=== PATIENT | female | born 1935 | race Caucasian/White ===

== ENCOUNTER 2016-10-17 10:14 | Outpatient (CLI) | payer OTHER ==
[2016-07-23 11:30] VITALS: BP 117/50
[2016-10-17 11:09] LABS: eGFR (African) 29; eGFR (Non-African) 24
== END 2016-10-17 10:15 ==
LOC: LAB 10:14
PROVIDERS: ATTEND Family Medicine
DX: N18.2 Chronic kidney disease, stage 2 (mild) (principal); I11.9 Hypertensive heart disease without heart failure; E03.9 Hypothyroidism, unspecified; E78.00 Pure hypercholesterolemia, unspecified
CPT/HCPCS: 80048; 80061; 84443

== ENCOUNTER 2016-11-25 14:58 | Outpatient (CLI) | payer OTHER ==
[2016-07-23 11:30] VITALS: BP 117/50
[2016-11-25 15:21] LABS: BASOPHILS % 0.2 (0.0-1.5); EOSINOPHILS % 0.6 % (0.0-6.8); MEAN CORPUSCULAR HEMOGLOBIN 31.7 pg (28.0-34.0); MEAN CORPUSCULAR VOLUME 93.1 fl (80.0-100.0); MONOCYTES % 5.2 % (0.0-11.0); NEUTROPHILS # 6.9 # k/uL (1.4-7.7)
[2016-11-25 16:34] LABS: eGFR (African) 35; eGFR (Non-African) 29
--- NOTE | 2016-11-26 06:01 | Diagnostic Imaging Report ---
DEBORAH ROCK~ [facility] [address] [facility] [address] [place] [address]. [id number] ~ ~ ~ ~ Report Submission Date: Nov 25, 2016 4:15:31 PM CDT Patient ~ Study Name: DEACON NJ ~ Date: Nov 25, 2016 3:34:39 PM CDT ~ Modality Type: CR Gender: F ~ Description: ABDOMEN : 31 ~ Institution: [facility] Physician: DEBORAH ROCK ~ ~ ~ ~ Abdomen - one-view Clinical history: ~Abdominal pain. ~Nausea and vomiting for 1 week. Findings: ~Examination of the abdomen in single AP view demonstrates postoperative changes with surgical clips in the right upper quadrant from prior cholecystectomy. ~Degenerative changes are present in the lumbar spine with scoliosis convex to the right. ~Increased stool is present in the colon. ~ There is no evidence of obstruction. ~Visualized lung bases are clear. ~The femoral heads are normally seated in the acetabula. Impression: 1. ~Postoperative changes. 2. ~Increased stool in the colon. 3. ~Lumbar spondylosis and dextroscoliosis. ~ Electronically signed on Nov 25, 2016 4:15:31 PM CDT by: Dayo VICTOR
== END 2016-11-25 15:00 ==
LOC: LAB 14:58
PROVIDERS: ATTEND Physician Assistant
DX: R10.84 Generalized abdominal pain (principal)
CPT/HCPCS: 36415; 74000; 80053; 85025

== ENCOUNTER 2016-11-28 09:02 | Outpatient (CLI) | payer OTHER ==
[2016-07-23 11:30] VITALS: BP 117/50
[2016-11-28 09:31] LABS: BASOPHILS % 0.5 (0.0-1.5); EOSINOPHILS % 2.3 % (0.0-6.8); MEAN CORPUSCULAR HEMOGLOBIN 31.8 pg (28.0-34.0); MEAN CORPUSCULAR VOLUME 94.4 fl (80.0-100.0); MONOCYTES % 3.8 % (0.0-11.0); NEUTROPHILS # 8.5 # k/uL (1.4-7.7)
[2016-11-28 09:55] LABS: eGFR (African) 19; eGFR (Non-African) 16
== END 2016-11-28 09:03 ==
LOC: LAB 09:02
PROVIDERS: ATTEND Family Medicine
DX: R10.30 Lower abdominal pain, unspecified (principal)
CPT/HCPCS: 36415; 80053; 85025

== ENCOUNTER 2016-11-30 10:26 | Outpatient (CLI) | payer OTHER ==
[2016-07-23 11:30] VITALS: BP 117/50
[2016-11-30 11:14] LABS: eGFR (African) 26; eGFR (Non-African) 22
== END 2016-11-30 10:27 ==
LOC: LAB 10:26
PROVIDERS: ATTEND Family Medicine
DX: R10.30 Lower abdominal pain, unspecified (principal)
CPT/HCPCS: 36415; 80048

== ENCOUNTER 2016-12-13 11:32 | Outpatient (CLI) | payer OTHER ==
[2016-07-23 11:30] VITALS: BP 117/50
[2016-12-13 12:30] LABS: eGFR (African) 27; eGFR (Non-African) 23
== END 2016-12-13 11:33 ==
LOC: LAB 11:32
PROVIDERS: ATTEND Family Medicine
DX: N18.2 Chronic kidney disease, stage 2 (mild) (principal)
CPT/HCPCS: 36415; 80048

== ENCOUNTER 2017-01-16 08:26 | Outpatient (CLI) | payer OTHER ==
[2016-07-23 11:30] VITALS: BP 117/50
[2017-01-16 08:52] LABS: BASOPHILS % 0.6 (0.0-1.5); EOSINOPHILS % 2.9 % (0.0-6.8); MEAN CORPUSCULAR HEMOGLOBIN 31.1 pg (28.0-34.0); MEAN CORPUSCULAR VOLUME 95.2 fl (80.0-100.0); MONOCYTES % 3.3 % (0.0-11.0); NEUTROPHILS # 5.4 # k/uL (1.4-7.7)
[2017-01-16 09:13] LABS: eGFR (African) 31; eGFR (Non-African) 25
== END 2017-01-16 08:27 ==
LOC: LAB 08:26
PROVIDERS: ATTEND Clinical Nurse Specialist Medical-Surgical
DX: I26.99 Other pulmonary embolism without acute cor pulmonale (principal); N39.0 Urinary tract infection, site not specified
CPT/HCPCS: 36415; 80048; 85025; 85610

== ENCOUNTER 2017-01-26 11:52 | Outpatient (CLI) | payer OTHER ==
[2016-07-23 11:30] VITALS: BP 117/50
== END 2017-01-26 12:00 ==
LOC: LAB 11:52
PROVIDERS: ATTEND Family Medicine
DX: Z51.81 Encounter for therapeutic drug level monitoring (principal); Z79.01 Long term (current) use of anticoagulants
CPT/HCPCS: 36415; 85610

== ENCOUNTER 2017-01-27 10:32 | Outpatient (CLI) | payer OTHER ==
[2016-07-23 11:30] VITALS: BP 117/50
== END 2017-01-27 10:40 ==
LOC: LABRHC 10:32
PROVIDERS: ATTEND Physician Assistant
DX: R35.0 Frequency of micturition (principal)
CPT/HCPCS: 87086

== ENCOUNTER 2017-02-08 09:14 | Outpatient (CLI) | payer OTHER ==
[2016-07-23 11:30] VITALS: BP 117/50
== END 2017-02-08 09:15 ==
LOC: LAB 09:14
PROVIDERS: ATTEND Physician Assistant
DX: Z79.01 Long term (current) use of anticoagulants (principal); R35.0 Frequency of micturition
CPT/HCPCS: 36415; 85610; 87086

== ENCOUNTER 2017-02-23 09:17 | Outpatient (CLI) | payer OTHER ==
[2016-07-23 11:30] VITALS: BP 117/50
== END 2017-02-23 09:18 ==
LOC: LAB 09:17
PROVIDERS: ATTEND Family Medicine
DX: I82.403 Acute embolism and thrombosis of unspecified deep veins of lower extremity, bilateral (principal)
CPT/HCPCS: 36415; 85610

== ENCOUNTER 2017-03-08 10:56 | Outpatient (CLI) | payer OTHER ==
[2016-07-23 11:30] VITALS: BP 117/50
[2017-03-08 11:47] LABS: eGFR (African) 31; eGFR (Non-African) 25
== END 2017-03-08 10:57 ==
LOC: LAB 10:56
PROVIDERS: ATTEND Internal Medicine Cardiovascular Disease
DX: N18.9 Chronic kidney disease, unspecified (principal); I10 Essential (primary) hypertension
CPT/HCPCS: 36415; 80048; 85610

== ENCOUNTER 2017-03-29 09:53 | Outpatient (CLI) | payer OTHER ==
[2016-07-23 11:30] VITALS: BP 117/50
== END 2017-03-29 09:54 ==
LOC: LAB 09:53
PROVIDERS: ATTEND Family Medicine
DX: I82.403 Acute embolism and thrombosis of unspecified deep veins of lower extremity, bilateral (principal)
CPT/HCPCS: 36415; 85610

== ENCOUNTER 2017-05-02 08:59 | Outpatient (CLI) | payer OTHER ==
[2016-07-23 11:30] VITALS: BP 117/50
== END 2017-05-02 09:00 ==
LOC: LAB 08:59
PROVIDERS: ATTEND Family Medicine
DX: I82.403 Acute embolism and thrombosis of unspecified deep veins of lower extremity, bilateral (principal)
CPT/HCPCS: 36415; 85610

== ENCOUNTER 2017-05-31 10:55 | Outpatient (CLI) | payer OTHER ==
[2016-07-23 11:30] VITALS: BP 117/50
== END 2017-05-31 11:00 ==
LOC: LAB 10:55
PROVIDERS: ATTEND Family Medicine
DX: I82.403 Acute embolism and thrombosis of unspecified deep veins of lower extremity, bilateral (principal)
CPT/HCPCS: 36415; 85610

== ENCOUNTER 2017-06-09 11:44 | Outpatient (CLI) | payer OTHER ==
[2016-07-23 11:30] VITALS: BP 117/50
[2017-06-09 12:04] LABS: BASOPHILS % 0.4 (0.0-1.5); EOSINOPHILS % 2.7 % (0.0-6.8); MEAN CORPUSCULAR HEMOGLOBIN 30.2 pg (28.0-34.0); MEAN CORPUSCULAR VOLUME 89.8 fl (80.0-100.0); MONOCYTES % 4.7 % (0.0-11.0); NEUTROPHILS # 5.7 # k/uL (1.4-7.7)
== END 2017-06-09 11:45 ==
LOC: LAB 11:44
PROVIDERS: ATTEND Internal Medicine Nephrology
DX: N18.4 Chronic kidney disease, stage 4 (severe) (principal); R31.9 Hematuria, unspecified; I10 Essential (primary) hypertension; Z68.28 Body mass index [BMI] 28.0-28.9, adult
CPT/HCPCS: 36415; 80069; 85025

== ENCOUNTER 2017-06-14 08:37 | Outpatient (CLI) | payer OTHER ==
[2016-07-23 11:30] VITALS: BP 117/50
== END 2017-06-14 08:40 ==
LOC: LAB 08:37
PROVIDERS: ATTEND Nurse Practitioner Family
DX: I82.403 Acute embolism and thrombosis of unspecified deep veins of lower extremity, bilateral (principal)
CPT/HCPCS: 36415; 85610

== ENCOUNTER 2017-07-03 10:55 | Outpatient (CLI) | payer OTHER ==
[2016-07-23 11:30] VITALS: BP 117/50
== END 2017-07-03 10:56 ==
LOC: LAB 10:55
PROVIDERS: ATTEND Family Medicine
DX: I82.403 Acute embolism and thrombosis of unspecified deep veins of lower extremity, bilateral (principal)
CPT/HCPCS: 36415; 85610

== ENCOUNTER 2017-07-10 08:42 | Outpatient (CLI) | payer OTHER ==
[2016-07-23 11:30] VITALS: BP 117/50
--- NOTE | 2017-07-10 11:43 | Diagnostic Imaging Report ---
FIFI BROWN [facility] [address] [facility] [address] 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 Comparison exam: None provided Findings: Sonographic evaluation of the lower extremity venous system from the groin to the popliteal fossa inclusive. Left lower extremity demonstrates normal compressibility. No luminal filling defect. Normal waveforms and response to augmentation. No popliteal region fluid collection. Right lower extremity veins were difficult to compress from the proximal femoral vein to the distal femoral vein. Remaining venous structures without gross abnormality. Normal waveforms. Adjacent to the right common femoral vein is a noncompressible low density structure. Impression: No evidence for left deep venous thrombosis. Veins in the right leg narrowed and difficult to compress - may represent residual scarring/mural thickening. Density adjacent to the right common femoral vein. Correlation with previous examination recommended. Electronically signed on Jul 10, 2017 10:07:35 AM DECORATING INSTRUCTOR by: Kojo VICTOR
== END 2017-07-10 08:44 ==
LOC: RAD 08:42
PROVIDERS: ATTEND Family Medicine
DX: I82.403 Acute embolism and thrombosis of unspecified deep veins of lower extremity, bilateral (principal)
CPT/HCPCS: 93970

== ENCOUNTER 2017-08-30 09:14 | Outpatient (CLI) | payer OTHER ==
[2016-07-23 11:30] VITALS: BP 117/50
== END 2017-08-30 09:16 ==
LOC: LAB 09:14
PROVIDERS: ATTEND Family Medicine
DX: I82.403 Acute embolism and thrombosis of unspecified deep veins of lower extremity, bilateral (principal)
CPT/HCPCS: 36415; 85610

== ENCOUNTER 2017-09-18 13:38 | Outpatient (CLI) | payer OTHER ==
[2016-07-23 11:30] VITALS: BP 117/50
== END 2017-09-18 13:40 ==
LOC: LAB 13:38
PROVIDERS: ATTEND Family Medicine
DX: I82.403 Acute embolism and thrombosis of unspecified deep veins of lower extremity, bilateral (principal)
CPT/HCPCS: 36415; 85610

== ENCOUNTER 2017-09-25 09:32 | Outpatient (CLI) | payer OTHER ==
[2016-07-23 11:30] VITALS: BP 117/50
== END 2017-09-25 09:33 ==
LOC: LAB 09:32
PROVIDERS: ATTEND Family Medicine
DX: I82.403 Acute embolism and thrombosis of unspecified deep veins of lower extremity, bilateral (principal)
CPT/HCPCS: 36415; 85610

== ENCOUNTER 2017-10-23 09:47 | Outpatient (CLI) | payer OTHER ==
[2016-07-23 11:30] VITALS: BP 117/50
== END 2017-10-23 09:50 ==
LOC: LAB 09:47
PROVIDERS: ATTEND Family Medicine
DX: I82.403 Acute embolism and thrombosis of unspecified deep veins of lower extremity, bilateral (principal)
CPT/HCPCS: 36415; 85610

== ENCOUNTER 2017-11-28 09:17 | Outpatient (CLI) | payer OTHER ==
[2016-07-23 11:30] VITALS: BP 117/50
== END 2017-11-28 09:20 ==
LOC: LAB 09:17
PROVIDERS: ATTEND Family Medicine
DX: I82.403 Acute embolism and thrombosis of unspecified deep veins of lower extremity, bilateral (principal)
CPT/HCPCS: 36415; 85610

== ENCOUNTER 2017-12-14 09:06 | Outpatient (CLI) | payer OTHER ==
[2016-07-23 11:30] VITALS: BP 117/50
== END 2017-12-14 09:07 ==
LOC: LAB 09:06
PROVIDERS: ATTEND Family Medicine
DX: I82.403 Acute embolism and thrombosis of unspecified deep veins of lower extremity, bilateral (principal)
CPT/HCPCS: 36415; 85610

== ENCOUNTER 2018-01-18 08:15 | Outpatient (CLI) | payer OTHER ==
[2016-07-23 11:30] VITALS: BP 117/50
== END 2018-01-18 08:30 ==
LOC: LAB 08:15
PROVIDERS: ATTEND Family Medicine
DX: I82.403 Acute embolism and thrombosis of unspecified deep veins of lower extremity, bilateral (principal)
CPT/HCPCS: 36415; 85610

== ENCOUNTER 2018-02-13 08:53 | Outpatient (CLI) | payer OTHER ==
[2016-07-23 11:30] VITALS: BP 117/50
[2018-02-13 09:25] LABS: BASOPHILS % 0.6 (0.0-1.5); EOSINOPHILS % 5.4 % (0.0-6.8); MEAN CORPUSCULAR HEMOGLOBIN 29.7 pg (28.0-34.0); MEAN CORPUSCULAR VOLUME 93.4 fl (80.0-100.0); MONOCYTES % 8.4 % (0.0-11.0); NEUTROPHILS # 1.9 # k/uL (1.4-7.7)
== END 2018-02-13 08:56 ==
LOC: LAB 08:53
PROVIDERS: ATTEND Internal Medicine Nephrology
DX: N18.4 Chronic kidney disease, stage 4 (severe) (principal); I10 Essential (primary) hypertension; R31.9 Hematuria, unspecified; R60.9 Edema, unspecified; Z68.25 Body mass index [BMI] 25.0-25.9, adult
CPT/HCPCS: 36415; 80069; 85025

== ENCOUNTER 2018-02-26 08:45 | Outpatient (CLI) | payer OTHER ==
[2016-07-23 11:30] VITALS: BP 117/50
[2018-02-26 17:21] LABS: SERUM IRON 106 ug/dL (37-145)
== END 2018-02-26 08:46 ==
LOC: LAB 08:45
PROVIDERS: ATTEND Family Medicine
DX: I82.403 Acute embolism and thrombosis of unspecified deep veins of lower extremity, bilateral (principal); D63.1 Anemia in chronic kidney disease; N18.4 Chronic kidney disease, stage 4 (severe); R31.9 Hematuria, unspecified; I10 Essential (primary) hypertension; Z68.24 Body mass index [BMI] 24.0-24.9, adult
CPT/HCPCS: 36415; 82728; 83540; 83550; 85610

== ENCOUNTER 2018-03-30 11:24 | Outpatient (CLI) | payer OTHER ==
[2016-07-23 11:30] VITALS: BP 117/50
== END 2018-03-30 11:52 ==
LOC: LAB 11:24
PROVIDERS: ATTEND Family Medicine
DX: I82.403 Acute embolism and thrombosis of unspecified deep veins of lower extremity, bilateral (principal)
CPT/HCPCS: 36415; 85610

== ENCOUNTER 2018-04-02 08:19 | Outpatient (CLI) | payer OTHER ==
[2016-07-23 11:30] VITALS: BP 117/50
== END 2018-04-02 08:20 ==
LOC: LAB 08:19
PROVIDERS: ATTEND Family Medicine
DX: I82.403 Acute embolism and thrombosis of unspecified deep veins of lower extremity, bilateral (principal)
CPT/HCPCS: 36415; 85610

== ENCOUNTER 2018-05-07 09:47 | Outpatient (CLI) | payer OTHER ==
[2016-07-23 11:30] VITALS: BP 117/50
== END 2018-05-07 09:50 ==
LOC: LAB 09:47
PROVIDERS: ATTEND Family Medicine
DX: I82.403 Acute embolism and thrombosis of unspecified deep veins of lower extremity, bilateral (principal)
CPT/HCPCS: 36415; 85610

== ENCOUNTER 2018-06-12 15:06 | Outpatient (CLI) | payer OTHER ==
[2016-07-23 11:30] VITALS: BP 117/50
[2018-06-12 15:24] LABS: BASOPHILS % 0.2 (0.0-1.5); EOSINOPHILS % 2.7 % (0.0-6.8); MEAN CORPUSCULAR HEMOGLOBIN 30.5 pg (28.0-34.0); NEUTROPHILS # 3.6 # k/uL (1.4-7.7)
[2018-06-12 22:02] LABS: IRON SERUM 67 ug/dL (37-145); SERUM IRON 67 ug/dL (37-145)
== END 2018-06-12 15:08 ==
LOC: LAB 15:06
PROVIDERS: ATTEND Family Medicine
DX: I82.403 Acute embolism and thrombosis of unspecified deep veins of lower extremity, bilateral (principal); D63.1 Anemia in chronic kidney disease; N18.4 Chronic kidney disease, stage 4 (severe); R31.9 Hematuria, unspecified; I10 Essential (primary) hypertension; Z68.24 Body mass index [BMI] 24.0-24.9, adult
CPT/HCPCS: 36415; 80069; 82728; 83540; 83550; 85025; 85610

== ENCOUNTER 2018-08-08 08:32 | Outpatient (CLI) | payer OTHER ==
[2016-07-23 11:30] VITALS: BP 117/50
== END 2018-08-08 08:33 ==
LOC: LAB 08:32
PROVIDERS: ATTEND Family Medicine
DX: I82.403 Acute embolism and thrombosis of unspecified deep veins of lower extremity, bilateral (principal)
CPT/HCPCS: 36415; 85610

== ENCOUNTER 2018-09-11 08:21 | Outpatient (CLI) | payer OTHER ==
[2016-07-23 11:30] VITALS: BP 117/50
== END 2018-09-11 08:30 ==
LOC: LAB 08:21
PROVIDERS: ATTEND Family Medicine
DX: I82.403 Acute embolism and thrombosis of unspecified deep veins of lower extremity, bilateral (principal)
CPT/HCPCS: 36415; 85610

== ENCOUNTER 2018-10-23 09:33 | Outpatient (CLI) | payer OTHER ==
[2016-07-23 11:30] VITALS: BP 117/50
== END 2018-10-23 09:45 ==
LOC: LAB 09:33
PROVIDERS: ATTEND Family Medicine
DX: I82.403 Acute embolism and thrombosis of unspecified deep veins of lower extremity, bilateral (principal)
CPT/HCPCS: 36415; 85610

== ENCOUNTER 2018-11-09 08:22 | Outpatient (CLI) | payer OTHER ==
[2016-07-23 11:30] VITALS: BP 117/50
[2018-11-09 09:12] LABS: BASOPHILS % 0.5 % (0.0-1.5); EOSINOPHILS % 3.6 % (0.0-6.8); MEAN CORPUSCULAR HEMOGLOBIN 30.1 pg (28.0-34.0); MONOCYTES % 4.9 % (0.0-11.0); NEUTROPHILS # 3.1 # k/uL (1.4-7.7)
== END 2018-11-09 08:32 ==
LOC: LAB 08:22
PROVIDERS: ATTEND Internal Medicine Nephrology
DX: N18.4 Chronic kidney disease, stage 4 (severe) (principal); I10 Essential (primary) hypertension; R60.9 Edema, unspecified
CPT/HCPCS: 36415; 80069; 85025

== ENCOUNTER 2019-01-01 08:24 | Outpatient (CLI) | payer OTHER ==
[2016-07-23 11:30] VITALS: BP 117/50
[2019-02-12 11:58] LABS: A1C 6.1 % (<5.7); HDL 46 mg/dL (>40); eGFR (Non-African) 19
== END 2019-01-01 08:26 ==
LOC: LAB 08:24
PROVIDERS: ATTEND Family Medicine
DX: I82.403 Acute embolism and thrombosis of unspecified deep veins of lower extremity, bilateral (principal)
CPT/HCPCS: 36415; 80053; 80061; 83036; 84443; 85610

== ENCOUNTER 2019-02-06 09:46 | Outpatient (CLI) | payer OTHER ==
[2016-07-23 11:30] VITALS: BP 117/50
== END 2019-02-06 09:48 ==
LOC: LAB 09:46
PROVIDERS: ATTEND Family Medicine
DX: I82.403 Acute embolism and thrombosis of unspecified deep veins of lower extremity, bilateral (principal)
CPT/HCPCS: 36415; 85610

== ENCOUNTER 2019-02-13 08:11 | Outpatient (CLI) | payer OTHER ==
[2016-07-23 11:30] VITALS: BP 117/50
--- NOTE | 2019-02-14 07:54 | Diagnostic Imaging Report ---
FIFI BROWN [facility] [address] [address] Report Submission Date: Feb 13, 2019 9:17:31 AM CDT Patient Study Name: DEACON NJ Date: Feb 13, 2019 12:00:00 AM CDT Modality Type: DEXA\OT Gender: F Description: DEXA : 31 Institution: [facility] Physician: FIFI BROWN Examination: Bone density History: Assess bone mineralization Comparison exams: 12 November 2015 Technique: DEXA protocol Findings: Average bone mineral density from L1 through L4: 1.256 grams cm2. T score: 0.6 Average bone mineral density of the left femoral neck: 0.644 grams cm2. T score: -2.8 Average bone mineral density of the right femoral neck: 0.656 grams cm2. T score: -2.8 Impression: Normal lumbar spine mineralization for age Bilateral femoral neck osteoporosis. Electronically signed on Feb 13, 2019 9:17:31 AM CDT by: Kojo VICTOR
== END 2019-02-13 08:13 ==
LOC: RAD 08:11
PROVIDERS: ATTEND Family Medicine
DX: M81.0 Age-related osteoporosis without current pathological fracture (principal)
CPT/HCPCS: 77080

== ENCOUNTER 2019-02-18 09:16 | Outpatient (CLI) | payer OTHER ==
[2016-07-23 11:30] VITALS: BP 117/50
== END 2019-02-18 09:18 ==
LOC: LAB 09:16
PROVIDERS: ATTEND Family Medicine
DX: I82.403 Acute embolism and thrombosis of unspecified deep veins of lower extremity, bilateral (principal)
CPT/HCPCS: 36415; 85610

== ENCOUNTER 2019-04-09 08:20 | Emergency (ER) | payer OTHER ==
--- NOTE | 2019-04-09 08:40 | ED Physician Documentation ---
General Adult - HISTORIAN Historian: patient - HPI Stated Complaint: bleeding left upper lip Chief Complaint: General Adult Additional Information: Patient presents to ED with bleeding from upper lip. Patient states she has had a nodule growing on her left upper lip over the past 2 months. She was going to go see Dr. Herman about it had not made an appointment yet. This morning while she was drinking coffee the nodule began bleeding this morning. She is on Coumadin for DVT/PE. Onset: hours (1) Timing: still present Severity: moderate - ROS CONST: denies: fever EYES/ENT: denies: problems with vision CVS/RESP: denies: chest pain, shortness of breath GI/: denies: abdominal pain, vomiting, nausea MS/SKIN/LYMPH: none NEURO/PSYCH: denies: headache - PAST HX Past History: other (DVT/PE, Stroke) Other History: none Surgeries/Procedures: cholecystectomy, hysterectomy, other (CABG) Allergies/Adverse Reactions: Allergies Allergy/AdvReac Type Severity Reaction Status Date / Time tramadol Allergy Intermediate Rash Verified 04/09/19 08:32 Sulfa (Sulfonamide Allergy Unknown Verified 04/09/19 08:32 Antibiotics) meperidine HCl [From Demerol] Allergy Verified 04/09/19 08:32 sulfamethoxazole Allergy Verified 04/09/19 08:32 [From Bactrim] trimethoprim [From Bactrim] Allergy Verified 04/09/19 08:32 Home Medications: Ambulatory Orders Medication Instructions Recorded Atorvastatin Calcium 40 mg PO DAILY 04/09/19 Hydrochlorothiazide 25 mg PO DAILY 04/09/19 Losartan Potassium [Cozaar] 50 mg PO DAILY 04/09/19 - SOCIAL HX Smoking History: non-smoker Alcohol Use: none Drug Use: none - FAMILY HX Family History: No - VITAL SIGNS Vital Signs: Vital Signs Temp Pulse Resp BP Pulse Ox 98 F 62 18 162/72 96 04/09/19 08:20 04/09/19 08:20 04/09/19 08:20 04/09/19 08:20 04/09/19 08:20 - REVIEWED ASSESSMENTS Nursing Assessment Reviewed: Yes Vitals Reviewed: Yes ED Results Lab/Radiology - Orders Orders: ED Orders Category Date Time Status CBC/PLATELET/DIFF Routine Lab 04/09/19 Ordered CMP Routine Lab 04/09/19 Ordered PT-INR Routine Lab 04/09/19 Ordered General Adult Physical Exam - PHYSICAL EXAM GENERAL APPEARANCE: no distress EENT: RICHIE, other (5mm round blue nodule, bleeding. Consistent with angioma ) NECK: supple RESPIRATORY: no resp distress, chest non-tender, breath sounds normal CVS: reg rate & rhythm, heart sounds normal ABDOMEN: soft, normal bowel sounds BACK: normal inspection SKIN: warm/dry, normal color EXTREMITIES: non-tender, normal range of motion, no edema NEURO: oriented X3, mood/affect nml Discharge Clincal Impression: Oral bleeding, Angioma of skin, Chronic anticoagulation Referrals: Herrera Herman MD [Primary Care Provider] - 2 Days Additional Instructions: 1. If bleeding re-occurs apply pressure to area for 10 minutes. 2. Warm salt water mouth rinses every 8 hours 3. Hold Coumadin tonight. 4. Follow up with Dr. Herman within 4 days. Discuss dermatology referral and recheck INR 5. Return to ER for new or worsening symptoms Condition: Stable Disposition: 01 HOME, SELF-CARE Decision to Admit: NO Date of Decison to Admit: 04/09/19 Decision Time: 09:26
[2019-04-09 09:32] LABS: BASOPHILS % 0.3 % (0.0-1.5); NEUTROPHILS # 2.9 # k/uL (1.4-7.7)
[2019-04-09 09:53] VITALS: BP 155/71
== END 2019-04-09 09:53 | disposition home or self-care (01) ==
LOC: ED 08:20
DX: K06.8 Other specified disorders of gingiva and edentulous alveolar ridge (principal); D18.01 Hemangioma of skin and subcutaneous tissue; Z79.01 Long term (current) use of anticoagulants; Z51.81 Encounter for therapeutic drug level monitoring
CPT/HCPCS: 80053; 85025; 85610; 99281; 99282

== ENCOUNTER 2019-05-13 10:06 | Outpatient (CLI) | payer OTHER | END 2019-05-13 10:15 | LOC: LAB 10:06 | PROVIDERS: ATTEND Family Medicine | DX: I82.403 Acute embolism and thrombosis of unspecified deep veins of lower extremity, bilateral (principal) | CPT/HCPCS: 36415; 85610 ==

== ENCOUNTER 2019-06-28 09:24 | Outpatient (CLI) | payer OTHER ==
[2019-06-28 09:48] LABS: BASOPHILS % 0.1 % (0.0-1.5); NEUTROPHILS # 3.3 # k/uL (1.4-7.7)
[2019-06-28 10:27] LABS: eGFR (Non-African) 15
== END 2019-06-28 09:29 ==
LOC: LAB 09:24
PROVIDERS: ATTEND Internal Medicine Nephrology
DX: I82.403 Acute embolism and thrombosis of unspecified deep veins of lower extremity, bilateral (principal); I12.9 Hypertensive chronic kidney disease with stage 1 through stage 4 chronic kidney disease, or unspecified chronic kidney disease; D63.1 Anemia in chronic kidney disease; N18.4 Chronic kidney disease, stage 4 (severe)
CPT/HCPCS: 36415; 80069; 82728; 83540; 83550; 85025; 85610

== ENCOUNTER 2019-07-02 11:52 | Outpatient (CLI) | payer OTHER ==
--- NOTE | 2019-07-02 16:46 | Diagnostic Imaging Report ---
PATIENT MR#: [id number] PATIENT PATIENT NAME: DEACON NJ DATE OF : 1935 REFERRING PHYSICIAN: Herrera Herman EXAM DATE: 07/02/2019 ACCESSION NUMBER: [id number] EXAM DESCRIPTION: RT HIP 2VIEW COMPLETE CLINICAL HISTORY: RT HIP AND LOW BACK PAIN CHRONIC BUT HAS BEEN HAVING INCREASING PAIN X 1 WEEK; UNAB LE TO WALK/MOVE AROUND DUE TO INCREASED PAIN COMPARISON: No study for comparison is available at the time of interpretation. TECHNIQUE: DX right hip, 2 views Osseous structures: The osseous structures are normal with no evidence of fracture or dislocation. Th ere is no osseous lesion or periosteal reaction. Joint spaces: The bones are well aligned. No articular surface abnormality is noted. Soft tissues: Atherosclerotic calcifications of the femoral artery. IMPRESSION: Normal right hip. Read by: Dr. Jackson Houston Transcribed by: Jackson Houston Transcribed Date: 07/02/2019 4:45:23 PM Electronically signed by: Dr. Jackson Houston Date signed: 07/02/2019 4:45:23 PM
--- NOTE | 2019-07-02 17:32 | Diagnostic Imaging Report ---
PATIENT MR#: [id number] PATIENT PATIENT NAME: DEACON NJ DATE OF : 1935 REFERRING PHYSICIAN: Herrera Herman EXAM DATE: 07/02/2019 ACCESSION NUMBER: [id number] EXAM DESCRIPTION: L SPINE 2 OR 3 VIEWS CLINICAL HISTORY: RT HIP AND LOW BACK PAIN CHRONIC BUT HAS BEEN HAVING INCREASING PAIN X 1 WEEK; UNAB LE TO WALK/MOVE AROUND DUE TO INCREASED PAIN COMPARISON: No relevant comparison is available at the time of interpretation. L-SPINE XRAY, 3 Views: Vertebral bodies: No compression deformities. Disc spaces: Severe degenerative disc disease at L1-2 and L4-5. Moderate generation disc disease at L 3-4 and L5-S1. Disc disease asymmetric due to scoliosis. Alignment: Moderate S-shaped lumbar scoliosis. 5 mm grade 1 retrolisthesis of L1 over L2. 10 mm grade 2 anterolisthesis of L4 over L5. Gallbladder: Cholecystectomy. Aorta: Calcifications are noted within the vessels indicating an element of arteriosclerosis. IMPRESSION: 1. Multilevel degenerative disc disease, severe at L1-2 and L4-5, asymmetric due to scoliosis. 2. Grade 1 retrolisthesis of L1 over L2 due to degenerative disc disease and facet arthritis. 3. Grade 2 anterolisthesis of L4 over L5 due degenerative disc disease and facet arthrosis. 4. Moderate S-shaped scoliosis. Read by: Dr. Jackson Houston Transcribed by: Jackson Houston Transcribed Date: 07/02/2019 5:31:40 PM Electronically signed by: Dr. Jackson Houston Date signed: 07/02/2019 5:31:40 PM
== END 2019-07-02 12:02 ==
LOC: RAD 11:52
PROVIDERS: ATTEND Family Medicine
DX: M54.41 Lumbago with sciatica, right side (principal)
CPT/HCPCS: 72100; 73502